=== PATIENT | female | born 1955 | race Caucasian/White ===

== ENCOUNTER 2017-01-29 05:59 | Emergency (ER) | payer OTHER ==
--- OUTSIDE RECORDS SUMMARY | 2017-01-29 06:22 | XMS REPORT | Continuity of Care Document ---
:1955 Demographics Phone Unavailable Preferred Language Unknown Marital Status Unknown Amish Affiliation Unknown Race Unknown Ethnic Group Unknown Author Organization [facility] ([facility]) [place] [address] Phone [phone] Care Team Providers Name Role Phone Unavailable Primary Care Provider Unavailable Source Comments This disclosure is being made pursuant to the Care Everywhere program, applicable federal and state laws, and may not contain all informaitonavailable regarding this patient.[facility] ([facility]) Active Allergies and Adverse Reactions Not on File Current Medications Not on file Active Problems Not on file Social History Tobacco Use Types Packs/Day Years Used Date Never Assessed Plan of Care Health Maintenance Due Date Last Done Comments HCV Screening 1955 Hepatitis B Vaccine (1 of 3 - Primary Series) 1955 Tdap Vaccine 1966 Lipid Disorder Screening 1973 Td Vaccine 1973 Cervical Cancer Screening 1985 Mammogram 1995 Colonoscopy 02/04/2005 Zoster Vaccine 2015 Influenza Vaccine: Seasonal (#1) 04/23/2016 Results from Last 3 Months Not on file
[2017-01-29 06:24] LABS: Hematocrit 41.4 % (37.0-47.0); Hemoglobin 13.9 gm/dL (12.5-16.0); Mean Cell Volume 91.2 fl (78-100); Mean Corpuscular Hemoglobin 30.6 pg (27-31); Mean Corpuscular Hgb Conc 33.6 g/dl (32-36); Neutrophil % 61.1 % (42-75.0); Platelet Count 328 K/mm3 (150-450); Red Blood Count 4.54 M/mm3 (4.2-5.4); Red Cell Distribution Width 12.9 % (11.5-14.0); White Blood Count 8.1 K/mm3 (4.0-10.5)
--- NOTE | 2017-01-29 06:35 | ERNOTE ---
Back Pain ER HPI Presenting Symptoms: injury/pain to back Time Seen by Provider: 01/29/17 06:21 Source: patient Exam Limitations: no limitations Immunizations: IMMUNIZATION HX Immunizations Up to Date Yes History of Influenza Vaccine No Allergies/Adverse Reactions: Allergies No Known Allergies Allergy (Unverified 01/29/17 06:12) Home Medications: HOME MEDICATIONS Aspirin 81 mg PO DAILY 01/29/17 [Last Taken 01/29/17] [place] Oil/[place]-3 Fatty Acids [Fish Oil] 1,200 mg PO DAILY 01/29/17 [Last Taken Unknown] Narrative: Onset of left scapular pain when she was in [facility], worsened over the past few months. Saw her PCP approx a month ago and was prescribed a muscle relaxer. Took muscle relaxer for a week without any benefit. Pain worse with laying down, pain moved to the chest after trying to sleep on her chest last night. Timing: Reports: getting worse Quality/Severity: Reports: moderate, severe, sharpness Location of pain: Reports: upper back, other - radiation to left chest today Activities at Onset: Reports: sleep Recent Injury?: Reports: no Possible Precipitating Factor: Reports: none Modifying Factors - (Improves): Reports: upright position Modifying Factors - (Worsens): Reports: supine position - or any Review of Systems - Review of Systems Constitutional: Absent: recent illness, fever EYE: Present: no symptoms reported ENT: Absent: nose congestion, nasal drainage, sore throat Respiratory: Present: shortness of breath - pain "takes her breath away at times " but not otherwise short of breath. Able to work normally. Cardiology: Present: See HPI Gastrointestinal/Abdominal: Absent: nausea, vomiting, abdominal pain Genitourinary: Present: no symptoms reported Musculoskeletal: Absent: muscle stiffness, neck pain Skin: Absent: rash Neurological: Absent: dizziness/light-headedness, weakness, numbness Endocrine: Absent: excessive sweating, flushing Hematologic/Lymphatic: Present: no symptoms reported Psych: Present: no symptoms reported - Patient's Past Medical History Patient History - Medical: No pertinent hx Patient History - Cardiac/Respiratory: Bronchitis, Hyperlipidemia Patient History - Cancer: Skin Patient History - Surgical Procedures: No surgical history Patient History - Other: None - Social History Smoking Status: Never smoker Have you smoked in the past 12 months: No - Immunizations Immunizations Up to Date: Yes History of Influenza Vaccine: No Physical Exam - Physical Exam General Appearance: Present: wd/wn, alert, mild distress Eye Exam: Normal inspection: bilateral, PERRL: bilateral, EOMI: bilateral Ears, Nose, Throat: Present: normal ENT inspection Neck: Present: normal inspection, nontender Respiratory: Present: no respiratory distress, normal breath sounds, lungs clear Cardiovascular/Chest: Present: regular rate, rhythm, no murmur, normal peripheral pulses Gastrointestinal/Abdominal: Present: normal bowel sounds, nontender, nondistended, soft Back Exam: Present: normal inspection, normal range of motion, no CVA tenderness , no vertebral tenderness Extremity Exam: Present: normal inspection, non-tender, normal range of motion - "a little pulling" in the chest with left arm full extension, no edema Neurological Exam: Present: alert, oriented, normal mood/affect, no motor/ sensory deficits Skin Exam: Present: normal color, warm/dry Lymphatic Exam: Present: no adenopathy ED Progress - Results and Orders Patient's Lab Results:: I have reviewed the patient's lab results. Results and Orders: Laboratory Tests 01/29/17 01/29/17 01/29/17 06:20 06:20 06:20 WBC 8.1 Hgb 13.9 Hct 41.4 Plt Count 328 PT 10.0 INR (Anticoag Therapy) 0.96 PTT ([place]) 27.8 Sodium 142 Potassium 3.7 Chloride 104 Carbon Dioxide 25.6 Anion Gap 16.1 H BUN 15 Creatinine 0.73 Est GFR (Non-Af Amer) 86 BUN/Creatinine Ratio 20.5 Random Glucose 106 Calcium Adj for Albumin 9.4 Total Bilirubin 0.5 AST 24 ALT 45 Alkaline Phosphatase 89 Troponin I Less than 0.017 Total Protein 8.1 Albumin 3.8 Laboratory Tests 01/29/17 06:20 D-Dimer 0.40 - Vital Signs Patient's Vital Signs:: I have reviewed the patient's vital signs. Vital Signs: Vital Signs 01/29/17 01/29/17 06:06 06:19 Temperature 36.5 C Pulse Rate 74 74 Respiratory 11 L Rate Blood Pressure 152/94 O2 Sat by Pulse 100 Oximetry - EKG EKG: NSR EKG read: Interp. by me - X-Ray X-Ray #1 X-Ray: chest Interpretation: Reviewed by me X-ray Comments: IMPRESSION: No focal consolidation. Left basilar linear atelectasis versus scar. Normal mediastinal contours. Electronically signed by Alberto Aldana D.O. - Progress/Reassessment Chief Complaint: Back Pain Progress Note-Subjective: 01/29/17 08:06 No benefit with GI coctail. encouraged her to try using the muscle relaxer Dr. Gracia prescribed three times a day on a day she doesn't have to work and see if that improves her condition. pt expresses understanding Departure Clinical Impression: Chest pain of uncertain etiology Back pain, thoracic Qualifiers: Chronicity: chronic Back pain laterality: left Qualified Code(s): M54.6 - Pain in thoracic spine; G89.29 - Other chronic pain - Departure Disposition: Home Follow Up Needed Condition: Good Instructions: Nonspecific Chest Pain, [id number] Additional Instructions: Try using the muscle relaxer three times a day on a day you don't have to work. Keep your appointment with [facility] Referrals: Bridgette Gracia DO [Primary Care Provider] -
[2017-01-29 06:44] LABS: INR 0.96 INR (0.90-1.10); Partial Thrombolplastin Time 27.8 Seconds (24-32)
[2017-01-29 07:02] LABS: ALT 45 U/L (19-67); AST 24 U/L (0-48); Albumin * 3.8 gm/dl (3.4-5.0); Alkaline Phosphatase * 89 U/L (50-170); Anion Gap 16.1 mmol/L (6.8-13.8); BUN/Creatinine Ratio 20.5 (9.0-21.6); Bilirubin, Total 0.5 mg/dL (0.0-1.1); Blood Urea Nitrogen 15 mg/dL (3-23); Ca. Corrected For Albumin 9.4 mg/dL (8.4-10.2); Calcium * 9.6 mg/dL (7.9-10.9); Carbon Dioxide 25.6 mmol/L (24-32.6); Chloride 104 mmol/L (97-106); Glucose * 106 mg/dL (70-110); Potassium 3.7 mmol/L (3.4-4.6); Sodium 142 mmol/L (132-142); Total Protein 8.1 gm/dL (6.2-8.2); Troponin I Less than 0.017 ng/ml (0.00-0.10)
[2017-01-29] MEDS ORDERED: LIDOCAINE HCL 20 ML UDC PO ONE (07:37)
[2017-01-29] MEDS ORDERED: SUCRALFATE 1 G/10 ML UDC PO ONE (07:37)
[2017-01-29] MEDS ORDERED: MAG HYDROX/ALUMINUM HYD/SIMETH 30 ML UDC PO ONE (07:37)
[2017-01-29 08:15] VITALS: BP 132/84
== END 2017-01-29 08:15 | disposition home or self-care (01) ==
LOC: ER 05:59
DX: R07.89 Other chest pain (principal); M54.6 Pain in thoracic spine; G89.29 Other chronic pain